=== PATIENT | female | born 1965 | race Caucasian/White ===

== ENCOUNTER 2024-07-28 07:18 | Emergency (ER) | payer MEDICAID, SELFPAY ==
--- NOTE | 2024-07-28 07:22 | XR_ITS ---
Examination: PA lateral chest 2 views TECHNIQUE: Upright PA lateral chest 2 views Date and time: July 28, 2024 0754 hours Comparison 10/31/2018 INDICATIONS: Chest pain beginning 3 days ago. FINDINGS: Moderate hyperexpansion Opacity remains at the right base obscuring detail lateral portion right hemidiaphragm Old fracture right clavicle No pulmonary edema Normal heart size IMPRESSION: Scarring versus pneumonia right base, clinical correlation advised
--- NOTE | 2024-07-28 07:22 | EKG_ITS ---
[facility] Test Date: 2024-07-28 Pat Name: MYRANDA GU Department: Room: - Gender: Female Technology Consultant: : 1965 Requested By: Rodolfo Rojas (ALONSO) Order Number: [id number] Reading MD: Rodolfo Rojas (ROOF PROMENADE TILE SETTER) Measurements Intervals [place] Rate: 84 P: 54 VA: 148 QRS: 64 QRSD: 97 T: 68 QT: 360 QTc: 427 Interpretive Statements SINUS RHYTHM Compared to ECG 10/31/2018 18:25:39 Myocardial infarct finding no longer present /store/S0/[id number].pdf
[2024-07-28 07:27] VITALS: BP 162/107; PULSE 85; RESP 18; TEMP 36.1; O2SAT 98; BMI 22.6
[2024-07-28 07:53] LABS: Basophils # (Auto) 0.1 Thou/mm3 (0.0-0.2); Basophils % (Auto) 1 % (0-2.5); Eosinophils # (Auto) 0.2 Thou/mm3 (0.0-0.5); Eosinophils % (Auto) 2 % (0-10); Hematocrit 38.8 % (36.0-46.0); Hemoglobin 12.9 g/dL (12.0-16.0); Immature Granulocytes % (Auto) 0 % (0-0); Immature Granulocytes Auto 0.01 Thou/mm3 (0.00-0.00); Lymphocytes # (Auto) 1.7 Thou/mm3 (1.0-4.8); Lymphocytes % (Auto) 18 % (10-50); Mean Corpuscular HGB Conc 33.2 g/dl (31.0-37.0); Mean Corpuscular Hemoglobin 27.6 pg (25.0-35.0); Mean Corpuscular Volume 83 fL (80-100); Monocytes # (Auto) 0.8 Thou/mm3 (0.0-0.8); Monocytes % (Auto) 9 % (0-12); Neutrophils # (Auto) 6.6 Thou/mm3 (1.8-7.7); Neutrophils % (Auto) 70 % (37-80); Nucleated Red Blood Cell % 0 /100 WBC (0); Platelet Count 302 Thou/mm3 (140-440); RDW Standard Deviation 43.6 fL (36.4-46.3); Red Blood Count 4.68 Miln/mm3 (4.00-5.20); White Blood Count 9.4 Thou/mm3 (3.6-11.0)
[2024-07-28 08:13] LABS: B-Type Natriuretic Peptide 32 pg/mL (0-100)
[2024-07-28 08:15] LABS: Alanine Aminotransferase 16 U/L (10-49); Albumin, Serum 3.8 gm/dL (3.5-5.0); Albumin/Globulin Ratio 2.1 (1.2-2.2); Alkaline Phosphatase 82 U/L (46-116); Anion Gap 3 (7-16); Aspartate Amino Transferase 15 U/L (0-34); BUN/Creatinine Ratio 16 Ratio (12-20); Bilirubin,Total 0.5 mg/dL (0.3-1.2); Blood Urea Nitrogen 16 mg/dL (9-23); Calcium 8.7 mg/dL (8.3-10.6); Calcium (Corrected) 8.9 mg/dL (8.5-10.1); Carbon Dioxide 27.6 mMol/L (20.0-31.0); Chloride 113 mMol/L (98-107); Estimated Creatinine Clearance 50.1 mL/min (>60); Globulin 1.8 gm/dL (2.3-3.5); Glucose 96 mg/dL (74-106); Osmolality,Calculated 288 (275-295); Potassium 4.2 mMol/L (3.4-5.1); Sodium 144 mMol/L (136-145); Total Protein 5.6 gm/dL (5.7-8.2); Troponin I < 0.020 ng/mL (0.0-0.045); eGFR > 60 See Note
--- NOTE | 2024-07-28 09:18 | PD.EDSOB ---
ED SOB =RME/HPI General Chief Complaint: Shortness of Breath/Dyspnea Stated Complaint: SOB X 2 weeks, right rib pain X 2 days Time Seen by Provider: 07/28/24 07:33 Arrival date/time: 07/28/24 07:18 59-year-old female presents to the emergency department today for complaints of shortness of breath x 2 weeks with right rib pain x 2 days. Patient reports no fever nausea vomiting Limitations: no limitations Related Data Home Medications ?Medication ?Instructions ?Recorded ?Confirmed albuterol sulfate 90 mcg/actuation 2 puff inhalation Q6HR PRN 07/15/16 11/01/18 aerosol inhaler (ProAir HFA) SHORTNESS OF BREATH #0 inhalations benazepril 10 mg tablet 10 mg PO QDAY #0 tabs 07/15/16 11/01/18 hydrocodone 10 mg-acetaminophen 1 tab PO TID PRN Pain #0 tabs 07/15/16 11/01/18 325 mg tablet ([place]) omeprazole 20 mg capsule,delayed 40 mg PO QDAY ##0 07/15/16 11/01/18 release ranitidine HCl 75 mg tablet 75 mg PO #0 tabs 07/15/16 (Zantac) promethazine 25 mg tablet 25 mg PO QID PRN Nausea And 11/01/18 11/01/18 Vomiting ranitidine HCl 75 mg tablet 75 mg PO QDAY 11/01/18 11/01/18 Previous Rx's ?Medication ?Instructions ?Recorded acetaminophen 500 mg tablet 500 mg PO Q6H PRN pain (scale 11/01/18 score 4-6) #30 tabs doxycycline monohydrate 100 mg 100 mg PO BID #20 caps 11/01/18 capsule azithromycin 500 mg tablet See Rx Instructions PO .COMPLEX #6 07/28/24 tabs ibuprofen 600 mg tablet 600 mg PO Q6H #30 tabs 07/28/24 Allergies Allergy/AdvReac Type Severity Reaction Status Date / Time hydromorphone Allergy Severe SEVERE Verified 07/28/24 07:22 ITCHING Contrast Media Allergy Severe THROAT Uncoded 07/28/24 07:22 SWELLING Review of Systems Review of Systems Systems Reviewed: All systems reviewed, normal except as documented Constitutional Constitutional: Reports system reviewed and no additional complaints, except as documented, Denies fever(s) and Denies headache(s) Eyes Eyes: Reports system reviewed and no additional complaints, except as documented and Denies blurry vision ENT Ears, Nose, Mouth, and Throat: Reports system reviewed and no additional complaints, except as documented, Denies headache(s), Denies nasal congestion, Denies nasal discharge and Denies neck pain Cardiovascular Cardiovascular: Reports system reviewed and no additional complaints, except as documented, Denies chest pain and Denies dyspnea Respiratory Respiratory: Reports system reviewed and no additional complaints, except as documented, Denies chest congestion, Denies cough and Denies dyspnea Gastrointestinal Gastrointestinal: Reports system reviewed and no additional complaints, except as documented and Denies abdominal pain Musculoskeletal Musculoskeletal: Reports system reviewed and no additional complaints, except as documented, Denies deformity, Denies joint swelling, Denies neck pain and Reports other (Pain right side ribs worse with movement) Integumentary/Breasts Skin/Breast: Reports system reviewed and no additional complaints, except as documented and Denies rash Neurologic Neurologic: Reports system reviewed and no additional complaints, except as documented, Reports as per HPI and Denies headache(s) Past Medical History Social History SMOKING STATUS: Current every day smoker ED Exam General Limitations: Present no limitations General appearance: Present alert and in no apparent distress Head Head exam: Present atraumatic Eye Eye exam: Present normal appearance, PERRL and EOMI ENT ENT exam: Present normal exam, normal oropharynx and mucous membranes moist Neck Neck exam: Present normal inspection, full ROM and trachea midline Chest Chest inspection: Present normal inspection and symmetric chest wall rise Respiratory Respiratory exam: Present normal lung sounds bilaterally Cardiovascular Cardiovascular exam: Present regular rate, normal rhythm and normal heart sounds Abdominal Exam Abdominal exam: Present soft and normal bowel sounds Extremities Exam Extremities exam: Present normal inspection, full ROM and normal capillary refill Back Exam Back exam: Present normal inspection and full ROM Neurological Exam Neurological exam: Present alert, oriented X3, CN II-XII intact, normal gait and reflexes normal; Absent motor sensory deficit Psychiatric Psychiatric exam: Present normal affect and normal mood Skin Skin exam: Present warm, dry and intact; Absent rash or cyanosis Course Quality Measures none Orders Category Date Time Status EKG (ED ONLY) *Do not use* NOW Care 07/28/24 07:22 Completed EKG (ED Only) Stat Exams 07/28/24 07:22 Draft XR chest 2V Stat Exams 07/28/24 07:22 Completed B-Type Natriuretic Peptide Stat Lab 07/28/24 07:34 Completed CBC Stat Lab 07/28/24 07:34 Completed Comprehensive Metabolic Panel Stat Lab 07/28/24 07:34 Completed Troponin I Stat Lab 07/28/24 07:34 Completed HYDROcodone*/APAP 5/325 [[place] 5/325] Med 07/28/24 09:47 Discontinued 1 tab PO X1 ONE NIFEdipine [Procardia] Med 07/28/24 09:47 Discontinued 20 mg PO X1 ONE Vital Signs Vital signs: Vital Signs Temperature 97.0 F 07/28/24 07:27 Pulse Rate 85 07/28/24 07:27 Respiratory Rate 18 07/28/24 07:27 Blood Pressure 162/107 H 07/28/24 07:27 Pulse Oximetry (%) 98 07/28/24 07:27 Oxygen Delivery Method Room Air 07/28/24 07:27 O2 saturation 98% on room air within the limits Shortness of Breath / Dyspnea MDM Narrative MDM Narrative:: 59-year-old female presents to the emergency department today for complaints of shortness of breath x 2 weeks with right rib pain x 2 days. Patient reports no fever nausea vomiting On exam patient well-appearing patient does not appear ill or toxic in no acute distress Lab work and imaging obtained no acute emergent findings noted Chest x-ray consistent with pneumonia right base patient was treated with course of antibiotics Incidentally patient noted to have hypertension patient reports she does not take her blood pressure medication as prescribed and did not take her blood pressure medication today Patient was medicated for pain and was given medication for blood pressure At time of reevaluation blood pressure is normal Patient discharged home in no distress to follow-up with primary care doctor in the next 24 to 48 hours and for any worsening symptoms to return to the ER immediately Patient data External records reviewed:: [facility] previous records Clinical information provided by:: patient Social determinants that could affect healthcare access:: housing Patient has the following chronic illnesses:: See history How is presenting disease/condition affected by chronic disease/condition?: caused by Evaluation data The following diagnostics were reviewed and interpreted by me:: lab results, radiology exam(s) and EKG tracing(s) Lab and/or radiology exams considered but not ordered:: Labs, radiology, EKG obtained Interpretation Summary: Reviewed by me Medications / Prescriptions Medications or Prescriptions considered but not ordered:: Given Medication administrations:: Medication Administration History Discontinued Medications Hydrocodone Bitart/Acetaminophen (Hydrocodone/Apap 5/325 Tablet) 1 tab PO X1 ONE Stop: 07/28/24 09:48 Last Admin: 07/28/24 10:21 Dose: 1 tab Documented By: BELIA Nifedipine (Nifedipine 10 Mg Capsule) 20 mg PO X1 ONE Stop: 07/28/24 09:48 Last Admin: 07/28/24 10:21 Dose: 20 mg Documented By: BELIA Given Consultations Consultation(s) initiated? (list below): No Diagnosis Shortness of Breath Differential Diagnosis: acute exacerbation of chronic obstructive airways disease, congestive heart failure and other (Rib pain, rib contusion, fracture) Most likely diagnosis given after review of the tests above:: Rib contusion, pneumonia, hypertension, medication compliance Admission Indicated Admission indicated?: not indicated Admission Request Was there a request for admission?: No Disposition Plan Disposition Plan: Discharge Discharge Attestation Discharge Attestation: The patient and all family members were given an opportunity to ask questions and understood the discharge instructions. Discharge instructions specifically effects, indications for sooner follow up or return to the emergency department, and the expected course of current diagnosis. Patient condition: Stable Discharge Plan Plan Patient Disposition: HOME (Self Care) Discharge Disposition comment: Stable Prescriptions/Referrals Prescriptions/Med Rec: New ibuprofen 600 mg tablet 600 mg PO Q6H Qty: 30 0RF azithromycin 500 mg tablet See Rx Instructions .ROUTE .COMPLEX Qty: 6 0RF Rx Instructions: take 500 mg today (day 1), then 250 mg for 4 days (days 2-5) No Action hydrocodone-acetaminophen [[place]] 10-325 mg Tablet 1 tab PO TID PRN (Reason: Pain) Qty: 0 ranitidine HCl [Zantac 75] 75 MG tablet 75 mg PO Qty: 0 omeprazole 20 MG capsule,delayed release(DR/EC) 40 mg PO QDAY Qty: 0 albuterol sulfate [ProAir HFA] 8.5 GM HFA aerosol inhaler 2 puff Inhalation Q6HR PRN (Reason: SHORTNESS OF BREATH) Qty: 0 benazepril 10 mg Tablet 10 mg PO QDAY Qty: 0 ranitidine HCl 75 mg Tablet 75 mg PO QDAY promethazine 25 mg Tablet 25 mg PO QID PRN (Reason: Nausea And Vomiting) doxycycline monohydrate 100 mg capsule 100 mg PO BID Qty: 20 0RF acetaminophen 500 mg tablet 500 mg PO Q6H PRN (Reason: pain (scale score 4-6)) Qty: 30 0RF Referrals: Bijan Quezada MD [Primary Care Provider] - In 1 week Problem List Clinical Impression: Rib pain on right side, Pneumonia Patient/Caregiver Discharge Instructions Education Materials: ED Pneumonia (Adult) Additional Instructions: Please follow up with your primary care doctor in the next 24-48hrs for any worsening symptoms return here immediately Print Language: Luxembourgish Stand Alone Forms: Evi Award Info., Patient Portal Info Letter PA/CHISEL TRIMMER Supervising Physician PA/CHISEL TRIMMER Supervising Physician: Dr potts
[2024-07-28 09:50] VITALS: BP 192/120; PULSE 87; RESP 17; TEMP 36.6; O2SAT 98
[2024-07-28 10:21] VITALS: BP 172/113; PULSE 88
[2024-07-28] MEDS: HYDROcodone/APAP 5/325 TABLET 1 TAB PO (10:21)
[2024-07-28] MEDS: NIFEdipine 10 MG CAPSULE 20 MG PO (10:21)
[2024-07-28 11:14] VITALS: BP 122/78; PULSE 97; RESP 17; TEMP 36.6; O2SAT 96
== END 2024-07-28 11:15 | disposition home or self-care (01) ==
PROVIDERS: Nurse Practitioner Primary Care; Emergency Provider Emergency Medicine; PCP Family Medicine
DX: J18.9 Pneumonia, unspecified organism (principal); F17.210 Nicotine dependence, cigarettes, uncomplicated; I10 Essential (primary) hypertension
CPT/HCPCS: 36415; 71046; 80053; 83735; 83880; 84484; 85025; 93005; 99283; A9270

== ENCOUNTER 2024-09-10 10:39 | Emergency (ER) | payer MEDICAID, SELFPAY ==
[2024-09-10 10:41] VITALS: BMI 21.6
[2024-09-10 10:50] VITALS: BP 160/90; PULSE 71; RESP 18; TEMP 36.9; O2SAT 98
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
[2024-09-10] MEDS: KETOROLAC INJ 60 MG/2 ML VIAL 30 MG IM (11:20)
== END 2024-09-10 12:29 | disposition home or self-care (01) ==
PROVIDERS: Emergency Provider Nurse Practitioner Family; PCP Family Medicine
DX: S22.41XA Multiple fractures of ribs, right side, initial encounter for closed fracture (principal); Y04.0XXA Assault by unarmed brawl or fight, initial encounter
CPT/HCPCS: 71101; 96372; 99283; J1885

== ENCOUNTER 2024-09-15 21:22 | Emergency (ER) | payer MEDICAID, SELFPAY ==
[2024-09-15] VITALS (7 sets, daily range): BP systolic 155–203; BP diastolic 105–116; PULSE 92–97; RESP 15–96; TEMP 36.4; O2SAT 93–97; BMI 21.6
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
--- NOTE | 2024-09-15 22:01 | XR_ITS ---
Examination: AP chest single view TECHNIQUE: AP portable upright chest single view Date and time: September 15, 2024 10:14 PM Comparison September 10, 2024 INDICATIONS: Shortness of breath chest pain today FINDINGS: Normal heart size Ectatic thoracic aorta. No pneumothorax. Mild interstitial disease at the lung bases No pulmonary edema Moderate osteopenia IMPRESSION: No lobar pneumonia or pulmonary edema
--- NOTE | 2024-09-15 22:05 | PC.NURSE ---
per provider verbal order of 4mg of morphine iv push and 4mg of zofran iv push. meds were ordered. per verbal orders of chest xray for sob of pt
[2024-09-15] MEDS: LIDOCAINE 5% 1 PATCH TOP (22:27)
--- NOTE | 2024-09-15 22:29 | PC.NURSE ---
pt states she is allergic to hydromorphone. per pt she states that she is not allergic to morphine and has taken multiple times without a reaction. provider notified, per provider to override and give morphine.
[2024-09-15] MEDS: ONDANSETRON INJ 2 MG/ML INJ 2 ML 4 MG IVP (22:32)
[2024-09-15] MEDS: MORPHINE SULF INJ 10 MG/ML VIAL 4 MG IVP (22:36)
[2024-09-15] MEDS: ALBUTEROL/IPRATROPIUM (Duoneb) RT SOL 3 ML NEBU INH (22:58)
[2024-09-15 23:20] LABS: Basophils # (Auto) 0.0 Thou/mm3 (0.0-0.2); Basophils % (Auto) 0 % (0-2.5); Eosinophils # (Auto) 0.2 Thou/mm3 (0.0-0.5); Eosinophils % (Auto) 2 % (0-10); Hematocrit 37.8 % (36.0-46.0); Hemoglobin 12.2 g/dL (12.0-16.0); Immature Granulocytes Auto 0.03 Thou/mm3 (0.00-0.00); Lymphocytes # (Auto) 0.8 Thou/mm3 (1.0-4.8); Lymphocytes % (Auto) 5 % (10-50); Mean Corpuscular HGB Conc 32.3 g/dl (31.0-37.0); Mean Corpuscular Hemoglobin 27.5 pg (25.0-35.0); Mean Corpuscular Volume 85 fL (80-100); Monocytes # (Auto) 0.7 Thou/mm3 (0.0-0.8); Monocytes % (Auto) 5 % (0-12); Neutrophils # (Auto) 12.4 Thou/mm3 (1.8-7.7); Neutrophils % (Auto) 88 % (37-80); Nucleated Red Blood Cell # 0.00 Thou/mm3 (0.00-0.00); Nucleated Red Blood Cell % 0 /100 WBC (0); Platelet Count 292 Thou/mm3 (140-440); RDW Standard Deviation 47.8 fL (36.4-46.3); Red Blood Count 4.44 Miln/mm3 (4.00-5.20); White Blood Count 14.1 Thou/mm3 (3.6-11.0)
[2024-09-15 23:37] LABS: Alanine Aminotransferase 16 U/L (10-49); Albumin, Serum 3.7 gm/dL (3.5-5.0); Albumin/Globulin Ratio 2.2 (1.2-2.2); Alkaline Phosphatase 80 U/L (46-116); Anion Gap 9 (7-16); Aspartate Amino Transferase 16 U/L (0-34); BUN/Creatinine Ratio 29 Ratio (12-20); Bilirubin,Total 0.3 mg/dL (0.3-1.2); Blood Urea Nitrogen 23 mg/dL (9-23); Calcium 8.7 mg/dL (8.3-10.6); Calcium (Corrected) 8.9 mg/dL (8.5-10.1); Carbon Dioxide 26.4 mMol/L (20.0-31.0); Chloride 111 mMol/L (98-107); Creatinine (Component) 0.8 mg/dL (0.6-1.3); Estimated Creatinine Clearance 62.6 mL/min (>60); Globulin 1.7 gm/dL (2.3-3.5); Glucose 104 mg/dL (74-106); Osmolality,Calculated 294 (275-295); Potassium 3.8 mMol/L (3.4-5.1); Sodium 146 mMol/L (136-145); Total Protein 5.4 gm/dL (5.7-8.2); eGFR > 60 See Note
--- NOTE | 2024-09-15 23:45 | PC.NURSE ---
morphine was given for pain. pt denies any adverse reaction or allergic reaction. pt denied sob and chest pain.
[2024-09-16 00:18] LABS: Collection Type, Urine Clean Catch
[2024-09-16 00:21] LABS: Bilirubin,Urine Negative (Negative); Blood,Urine Negative (Negative); Clarity,Urine Clear (Clear/Hazy); Color,Urine Yellow (Lt Yel-Yel); Culture Indicated,Urine Not Indicated; Glucose, Urine Negative (Negative); Ketones,Urine Negative (Negative); Leukocyte Esterase,Urine Positive (Negative); Nitrite,Urine Negative (Negative); PH,Urine 6.0 (5.0-7.0); Protein,Urine Trace (Neg - Trace); RBC,Urine 4 /hpf (0-3); Specific Gravity,Urine 1.030 (1.001-1.035); Squamous Epithelial Cell,Urine 6 /hpf (0-5); Urobilinogen,Urine Negative mg/dL (0.0-1.0); WBC,Urine 5 /hpf (0-5)
[2024-09-16 02:21] VITALS: BP 133/86; PULSE 90; RESP 15; O2SAT 95
--- NOTE | 2024-09-16 03:01 | PD.EDADDENDU ---
Emergency Room Addendum Addendum Narrative: Dr. Gray requests 20 tabs of 5-325 Norcos sent TID PRN because his EMR controlled substances function is not working. RX sent.
[2024-09-16] MEDS: RABIES VACCINE (PCEC)/PF 2.5 UNIT/ML VIAL IM (03:11)
[2024-09-16] MEDS: RABIES IMM GLOB (HUMAN) 150 IU/ML VIAL 2ML 1100 IU IM (03:14)
[2024-09-16 03:33] VITALS: BP 148/92; PULSE 97; RESP 18; O2SAT 99
== END 2024-09-16 03:35 | disposition home or self-care (01) ==
PROVIDERS: Emergency Provider Emergency Medicine
DX: S22.49XA Multiple fractures of ribs, unspecified side, initial encounter for closed fracture (principal); S61.412A Laceration without foreign body of left hand, initial encounter; Y04.0XXA Assault by unarmed brawl or fight, initial encounter; W54.0XXA Bitten by dog, initial encounter; Z23 Encounter for immunization
CPT/HCPCS: 36415; 71045; 80053; 81001; 85025; 90377; 90471; 90675; 94640; 96360; 96372; 96374; 96375; 99283; A9270; J2270; J2405; J3490

== ENCOUNTER 2024-09-16 05:09 | Emergency (ER) | payer MEDICAID, SELFPAY ==
[2024-09-16 05:10] VITALS: BP 169/107; PULSE 108; RESP 18; TEMP 36.7; O2SAT 93
--- NOTE | 2024-09-16 06:24 | EKG_ITS ---
[facility] Test Date: 2024-09-16 Pat Name: MYRANDA GU Department: Room: - Gender: Female Supervisor [employer]: : 1965 Requested By: Rodolfo Rojas (ALONSO) Order Number: [id number] Reading MD: Rodolfo Rojas (CONTRACTS OFFICER) Measurements Intervals [place] Rate: 99 P: 39 NE: 136 QRS: 52 QRSD: 85 T: 66 QT: 334 QTc: 430 Interpretive Statements SINUS RHYTHM POSSIBLE LEFT ATRIAL ENLARGEMENT [-0.1mV P-WAVE IN V1/V2] Compared to ECG 07/28/2024 07:29:37 No significant changes /store/S0/[id number]/ecg/[id number].pdf
[2024-09-16 06:55] LABS: Troponin I < 0.020 ng/mL (0.0-0.045)
[2024-09-16 06:56] LABS: B-Type Natriuretic Peptide 39 pg/mL (0-100)
[2024-09-16 07:04] VITALS: BP 165/97; O2SAT 92
--- NOTE | 2024-09-16 07:46 | PC.NURSE ---
PATIENT ASSESSED , PATIENT WITH COMPLAINT OF RIGHT RIB PAIN AND SHORTNESS OF BREATH. PATIENT STATES SHE WAS SEEN HERE LAST NIGHT AND FOLLOWING DISCHARGE SHE RETURNED DUE TO STILL HAVING PAIN. PATIENT PROVIDED URINE. PATIENT REQUESTING PAIN MEDICATION. MADE AWARE ED DR IS MAKING HIS ROUNDS AND WILL BE IN SHORTLY. CALL LIGHT WITHIN REACH.
[2024-09-16 08:05] VITALS: BP 164/92; PULSE 89; RESP 19; TEMP 36.9; O2SAT 95
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
[2024-09-16] MEDS: ONDANSETRON INJ 2 MG/ML INJ 2 ML 4 MG IV (08:52)
[2024-09-16] MEDS: MORPHINE SULF INJ 10 MG/ML VIAL 5 MG IVP (08:54)
[2024-09-16] MEDS: SODIUM CHLORIDE 0.9% 1000 ML 1,000 ML 999 ML IV (08:56)
--- NOTE | 2024-09-16 09:04 | XR_ITS ---
Examination: CT chest, without intravenous contrast. Sagittal and coronal 2-D reconstructions. Exam date and time: September 16, 2024, 0924 hours INDICATIONS: Injury to the chest one week ago with right anterior chest and costal rib pain CTDI:vol (mGy) 8.77 DLP: (mGycm) 312 Technique: Multiple 3.0 mm axial sections of the chest to been obtained. Bone and lung density settings are obtained. Sagittal and coronal 2-D reconstructions have been obtained. Low dose protocols were performed. One or more of the following dose reduction techniques were used; automated exposure control, adjustment of the mA and/or KV according to patient size, use of iterative reconstruction technique. Findings: Thoracic aorta pulmonary arteries appear intact No hemopericardium Significant left anterior descending coronary artery calcification Small soft areas of parenchymal disease in the right upper lobe anteriorly, axial images 124 through 143 Atelectasis in the right lower lobe. No pneumothorax or hemothorax The manubrium and the body of the sternum are intact Chronic wedging L1 T7 T6, no acute thoracic fracture Old fracture right clavicle Acute fractures right third, sixth, seventh ribs Subacute fractures right fourth fifth ribs Acute fracture right seventh rib in the midaxillary line No visualized liver splenic or renal laceration Absent gallbladder Abdominal aorta appears intact IMPRESSION: Acute fractures right third, sixth, seventh ribs with mild offset Subacute healing fractures right fourth and fifth ribs Thoracic aorta pulmonary arteries intact No pneumothorax Small areas of parenchymal disease in the right upper lobe which may represent scarring, clinical correlation advised Atelectasis right lower lobe
[2024-09-16 09:28] LABS: Amphetamine/Methamp Scrn,U Positive (Negative); Barbiturate Screen,Urine Negative (Negative); Benzodiazepines Screen,Urine Negative (Negative); Benzoylecgonine Screen, Ur Negative (Negative); Fentanyl Screen,Urine Positive (Negative); Opiate Screen,Urine Positive (Negative); THC Screen,Urine Negative (Negative)
== END 2024-09-16 14:56 | disposition home or self-care (01) ==
PROVIDERS: Nurse Practitioner Primary Care; Emergency Provider Emergency Medicine; PCP Family Medicine
DX: S22.41XA Multiple fractures of ribs, right side, initial encounter for closed fracture (principal); J98.11 Atelectasis; I10 Essential (primary) hypertension; J45.909 Unspecified asthma, uncomplicated; F17.210 Nicotine dependence, cigarettes, uncomplicated; Z59.01 Sheltered homelessness; Z98.84 Bariatric surgery status; Z90.710 Acquired absence of both cervix and uterus; Z91.041 Radiographic dye allergy status; Z88.5 Allergy status to narcotic agent; W51.XXXA Accidental striking against or bumped into by another person, initial encounter; Y92.199 Unspecified place in other specified residential institution as the place of occurrence of the external cause
CPT/HCPCS: 36415; 71250; 80307; 83880; 84484; 93005; 96361; 96374; 96375; 99284; J2270; J2405; J7030